=== PATIENT | female | born 1985 | race Caucasian/White ===

== ENCOUNTER 2019-03-15 18:29 | Emergency (ER) | payer OTHER ==
[2019-03-15 18:38] VITALS: BP 131/86
[2019-03-15] MEDS ORDERED: TETANUS/DIPHTHERIA/PERTUSSIS 0.5 ML SYRINGE IM ONE (18:55)
[2019-03-15] MEDS ORDERED: BUFFERED LIDOCAINE 10 ML SYRINGE SUBQ STA (18:55)
[2019-03-15] MEDS ORDERED: BUFFERED LIDOCAINE 10 ML SYRINGE ONE (18:56)
--- NOTE | 2019-03-15 18:56 | ED Physician Documentation ---
PD HPI LOWER EXT INJURY - Stated complaint Stated Complaint: RT FINGER INJURY - Chief complaint Chief Complaint: Ext Problem - History obtained from History obtained from: Patient - History of Present Illness PD HPI LOW EXT INJURY LOCATION: Right (33-year-old woman with unknown tetanus status was working at home today and the stand mixer turned on with her finger in it and now has a cut and the deformity to the right middle finger) Review of Systems Constitutional: reports: Reviewed and negative Throat: reports: Reviewed and negative Cardiac: reports: Reviewed and negative PD PAST MEDICAL HISTORY - Present Medications Home Medications: Ambulatory Orders Medication Instructions Recorded Confirmed Cephalexin [Keflex] 500 mg PO Q6H #28 capsule 03/15/19 Hydrocodone/Acetaminophen 1 - 2 each PO Q6H PRN #10 tablet 03/15/19 [Hydrocodon-Acetaminophen 5-325] - Allergies Allergies/Adverse Reactions: Allergies Allergy/AdvReac Type Severity Reaction Status Date / Time No Known Drug Allergies Allergy Verified 03/15/19 18:35 PD ED PE NORMAL - Vitals Vital signs reviewed: Yes - General General: Alert and oriented X 3, No acute distress - Extremities Extremities: Other (On the ulnar side of the right middle finger there is a sma ll laceration and some deformity about the DIP with normal sensation at the tip. Cannot move it due to pain.) - Neuro Neuro: Alert and oriented X 3, Normal speech Results - Vitals Vitals: Vital Signs - 24 hr 03/15/19 18:35 Temperature 36.5 C Heart Rate 66 Respiratory 16 Rate Blood Pressure 131/86 H O2 Saturation 99 Oxygen O2 Source Room air Procedures - Splint (location) R 3rd finger Splint applied by: Tech Type of splint: Metal foam finger splint Other: Patient tolerated well, No complications, Neurovascular intact - Reduction Body part reduced: Right, Finger Fracture or dislocation: Fracture dislocation Anesthesia: Digital block Reduction aftercare: Alignment improved, Splint applied PD MEDICAL DECISION MAKING - ED course ED course: She presents with a somewhat angulated potentially open finger fracture, it was reduced after a digital block and splinted. Counseled on the need to follow-up with orthopedics and given a CD of her x-ray. Departure - Departure Disposition: 01 Home, Self Care Clinical Impression: Open fracture of phalanx of digit of hand Qualifiers: Encounter type: initial encounter Qualified Code(s): S62.609B - Fracture of unspecified phalanx of unspecified finger, initial encounter for open fracture Condition: Good Record reviewed to determine appropriate education?: Yes Instructions: ED Fx Finger Open Prescriptions: Cephalexin [Keflex] 500 mg PO Q6H #28 capsule Hydrocodone/Acetaminophen [Hydrocodon-Acetaminophen 5-325] 1 - 2 each PO Q6H PRN #10 tablet PRN Reason: pain Comments: [place] Take the CD of the x-ray with you. Keep it splinted. Return for new or worsening symptoms. Discharge Date/Time: 03/15/19 19:42
[2019-03-15] MEDS ORDERED: cephALEXin 250 MG CAPSULE PO STA (19:13)
--- NOTE | 2019-03-15 19:18 | XRAY Report ---
Reason: finger inj Procedure Date: 03/15/2019 Accession Number: [id number] / [id number] Procedure: XR - Finger(s) RT CPT Code: Final Report FULL RESULT: EXAM: RIGHT THIRD DIGIT RADIOGRAPHY EXAM DATE: 03/15/2019 07:13 PM. CLINICAL HISTORY: Finger inj. COMPARISON: None. TECHNIQUE: 3 views. FINDINGS: Bones: Oblique mildly displaced third middle phalangeal fracture is evident. No other fracture lines are seen. Joints: No subluxations. Soft Tissues: Soft tissue swelling in the third digit. IMPRESSION: 1. Oblique mildly displaced third middle phalangeal fracture is seen with surrounding soft tissue swelling. RADIA
== END 2019-03-15 19:42 | disposition home or self-care (01) ==
LOC: ED 18:29
DX: S62.622A Displaced fracture of middle phalanx of right middle finger, initial encounter for closed fracture (principal); S61.212A Laceration without foreign body of right middle finger without damage to nail, initial encounter; W29.0XXA Contact with powered kitchen appliance, initial encounter; Y93.89 Activity, other specified; Y92.009 Unspecified place in unspecified non-institutional (private) residence as the place of occurrence of the external cause
CPT/HCPCS: 73140; 90471; 90715; 99283; A9270

== ENCOUNTER 2019-03-19 07:27 | Day surgery (SDC) | payer OTHER ==
[2019-03-19] MEDS ORDERED: fentaNYL 100 MCG/2 ML VIAL IVP ONE (07:28)
[2019-03-19] MEDS ORDERED: DEXAMETHASONE 4 MG/ML VIAL IVP ONE (07:28)
[2019-03-19] MEDS ORDERED: PROPOFOL 200 MG/20 ML VIAL IVP ONE (07:28)
[2019-03-19] MEDS ORDERED: GLYCOPYRROLATE 1 MG/5 ML VIAL IVP ONE (07:28)
[2019-03-19 07:46] LABS: HCG UR QUAL NEGATIVE
[2019-03-19] MEDS ORDERED: CEFAZOLIN SODIUM IN 0.9 % NACL 2 GM/100 ML BAG IV ONE (07:48)
[2019-03-19] MEDS ORDERED: LACTATED RINGERS 1,000 ML IV ONE (08:00)
[2019-03-19] MEDS ORDERED: BUPIVACAINE 0.25% PF 30 ML VIAL ONE (08:03)
--- NOTE | 2019-03-19 08:03 | ANESTHESIA ---
Pre-Anesthesia VS, & Labs - Diagnosis R 3rd finger fx - Procedure R 3rd finger closed vs open reduction Vital Signs: Temp Pulse Resp BP Pulse Ox 36.8 C 68 18 140/88 H 99 03/19/19 07:37 03/19/19 07:37 03/19/19 07:37 03/19/19 07:37 03/19/19 07:37 Height 5 ft 5.75 in Weight (kg) 77 kg Body Mass Index 28.3 - NPO >8 hours - Is Patient ?: No - Lab Results Lab results reviewed: Yes Home Medications and Allergies Allergies/Adverse Reactions: Allergies Allergy/AdvReac Type Severity Reaction Status Date / Time No Known Drug Allergies Allergy Verified 03/15/19 18:35 Anes History & Medical History - Anesthetic History Anesthesia Complications: reports: No previous complications Family history of Anesthesia Complications: Denies Family history of Malignant Hyperthermia: Denies - Medical History Cardiovascular: reports: None Pulmonary: reports: None Gastrointestinal: reports: None Urinary: reports: None Musculoskeletal: reports: Other (R 3rd finger fx) Endocrine/Autoimmune: reports: None Skin: reports: None Psychosocial: reports: Alcohol (social) - Surgical History General: Colonoscopy, EGD Orthopedic: Arthroscopic surgery Exam General: Alert, Oriented x3, Cooperative Dental: WNL, Other (chips to 6, 9) Mouth Openin Fingerbreadth Neck Mobility: Normal Mallampati classification: II Respiratory: Lungs clear, Normal breath sounds Cardiovascular: Regular rate Neurological: Normal speech Mental/Cognitive Status: Alert/Oriented X3, Normal for patient Cognitive Status: Within normal limits Plan Anesthesia Type: General Consent for Procedure(s) Verified and Reviewed: Yes Code Status: Attempt Resuscitation ASA classification: 1-Healthy patient Is this case an emergency?: No
[2019-03-19] MEDS ORDERED: BUPIVACAINE 0.25% PF 30 ML VIAL SUBQ ONE ×2 (08:56→09:31)
[2019-03-19] MEDS ORDERED: ONDANSETRON 4 MG/2 ML VIAL IVP PRN (09:53)
[2019-03-19] MEDS ORDERED: oxyCODONE 5 MG TABLET PO PRN (09:53)
--- NOTE | 2019-03-19 10:04 | OPERATIVE REPORT ---
Operative Report - General Procedure Date: 03/19/19 - Procedure Note Estimated Blood Loss (mL): 2 - Other Other Information/Narrative: Date of Procedure: 19 March 2019 Planned Procedure: Right long finger middle phalanx closed versus open reduction percutaneous pinning versus internal fixation Pre-op diagnosis: Right long finger middle phalanx oblique fracture Procedure performed: Right long finger middle phalanx closed reduction and percutaneous pinning Post-op diagnosis: Right long finger middle phalanx oblique fracture Primary Surgeon: AKIN ALSTON Secondary Surgeon: Anesthesia: General LMA EBL: 2 ml Tourniquet: 0 minutes Implants: Three 0.035 Audi wires, planned removal in clinic in approximately 3 weeks Specimen(s) Information: None Complication(s): None Condition: Stable to recovery Indications for Surgery: The patient is a 33-year-old right hand dominant female with a right long finger middle phalanx fracture sustained on Monday evening March 15 when 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 She caught her finger in the mixer with deformity of the middle phalanz and distal phalanx skin laceration, and presented to the [facility] ED for evaluation. They verified her tetanus, performed an irrigation and debridement of the distal ulnar-sided skin flap of the distal phalanx, performed a closed reduction and placed her in alumiform splint. She was started on Keflex. She presented to orthopedics on March 18, radiographs and clinical exam demonstrated a long oblique fracture of the middle phalanx, with rotational deformity of the nail bed demonstrated. We discussed treatment options to include continued nonoperative management versus the recommended treatment option of operative management with closed versus open reduction and percutaneous pinning versus internal fixation. Risks of surgery were discussed to include bleeding, infection, postoperative stiffness, implant complications, pin tract infections, loss of reduction, need for further procedures procedures, damage to nerves, vessels, tendons, ligaments, bone and cartilage and anesthesia complications to include medication side effects and allergic reactions and even . After discussion, she wished to proceed. Findings: Right long finger middle phalanx oblique fracture, closed reduced. Descriptions of Procedure: The patient was met in the Preoperative Holding Area, at which time preoperative paperwork was confirmed. The right dorsal hand was signed with an arrow pointing towards the splinted long finger. The patient was then brought to Main Operating Room, placed supine on the Operating Room table, at which time pre procedure timeout was conducted to confirm correct patient, correct extremity and correct procedure and also to confirm presence and sterility of all required equipment and to confirm that antibiotics were being administered in the form of 2g of intravenous Ancef. After this was confirmed, general anesthesia was induced. The operative extremity was then prepped and draped over a hand table in the normal sterile fashion after a well-padded tourniquet was placed on the proximal arm. A final timeout was conducted to confirm the correct patient, correct extremity and correct procedure and to confirm that antibiotics had been administered within 30 minutes of incision time. Following timeout, there was a small lacaratioon on the radial side of the finger. This was explored with hemostats and gently teased apart using tenotomy scissors - it did not track below the dermis. The distal long finger was grasped and the fracture was reduced using longitudinal traction and counter rotation to correct the rotational deformity. During manipulation the distal ulnar skin flap avulsed. the reduction maneuver was applied, there was a nice click as it reduced, and mini C-arm fluoroscopy was used to confirm alignment. I confirmed the lateral image that the epicondyles of both the PIP and DIP joint were rotationally the same. I then applied a [id number] clamp across the fracture to provisionally reduce it, and then using mini C arm fluoroscopy sequentially placed three 0.035 K wires across the fracture site. The clamp was removed. Biplanar fluoroscopy was again used to confirm adequacy of reduction and rotational alignment, followed by visual examination of the nailbeds as well as cascade effect with tenodesis. No rotational deformity was observed. The skin was cleaned with sterile saline. The K wires were then bent and cut, and Chevy balls were placed. The K wires were then wrapped with Xeroform, a separate Xeroform pad was placed over the area of avulsed soft tissue on the distal ulnar side of the distal phalanx. The pins were padded using 4 x 4's, and a plaster splint including the long ring and small fingers was applied, with mild wrist extension in intrinsic plus. This was overwrapped with a gently compressive Reji bandage. The patient was then awakened from general anesthesia without complication, brou ivant to the Post Anesthesia Care for further recovery. Postoperative Plan: 1. The patient will be discharged from the Same Day Surgery Unit when discharge criteria are met. 2. The patient will remain in a splint for approximately until follow-up. 3. Plan for pin removal in clinic in approximately 3 weeks, and initiation of motion and therapy
[2019-03-19] MEDS ORDERED: oxyCODONE 5 MG TABLET ONE (10:30)
[2019-03-19 10:51] VITALS: BP 124/81
== END 2019-03-19 07:28 | disposition home or self-care (01) ==
LOC: SDS 07:27
PROVIDERS: ATTEND Orthopaedic Surgery
PROC: 0PST34Z Reposition Right Finger Phalanx with Internal Fixation Device, Percutaneous Approach (ICD-10-PCS; principal; 2019-03-19 08:30)
DX: S62.622A Displaced fracture of middle phalanx of right middle finger, initial encounter for closed fracture (principal); X50.1XXA Overexertion from prolonged static or awkward postures, initial encounter; W29.0XXA Contact with powered kitchen appliance, initial encounter; Y93.G3 Activity, cooking and baking
CPT/HCPCS: 81025

== ENCOUNTER 2022-03-25 14:27 | Emergency (ER) | payer OTHER ==
[2022-03-25 14:35] VITALS: BP 142/97
--- NOTE | 2022-03-25 15:00 | ED Physician Documentation ---
History of Present Illness - Stated complaint Stated Complaint: RT RIB PAIN - Chief complaint Chief Complaint: General - History obtained from History obtained from: Patient - Additonal information Additional information: 36-year-old woman has been dealing with right-sided pain for the last week. She originally felt it kind of in the mid to low right rib cage in the back. It was not worse with deep breathing, exertion, or movement of the shoulder or thorax. Now she notices it more in the right upper quadrant and she has noticed more recently that she is developed some nausea and it worsens about 20 to 30 minutes after eating. She has not vomited. No history of abdominal surgeries or major health issues. Review of Systems Ten Systems: 10 systems reviewed and negative Constitutional: denies: Fever, Chills Eyes: reports: Reviewed and negative Ears: reports: Reviewed and negative PD PAST MEDICAL HISTORY - Past Medical History Cardiovascular: None Respiratory: None Endocrine/Autoimmune: None GI: None : None HEENT: None Psych: None Musculoskeletal: Other (R 3rd finger fx) Derm: None - Past Surgical History General: Colonoscopy, EGD Ortho: Arthroscopic surgery - Present Medications Home Medications: Ambulatory Orders Medication Instructions Recorded Confirmed Hydrocodone/Acetaminophen 1 - 2 each PO Q6H PRN #10 tablet 03/15/19 [Hydrocodon-Acetaminophen 5-325] cephALEXin [Keflex] 500 mg PO Q6H #28 capsule 03/15/19 Omeprazole 40 mg PO DAILY #30 cap 03/25/22 - Allergies Allergies/Adverse Reactions: Allergies Allergy/AdvReac Type Severity Reaction Status Date / Time No Known Drug Allergies Allergy Verified 03/25/22 14:35 PD ED PE NORMAL - Vitals Vital signs reviewed: Yes - General General: Alert and oriented X 3, No acute distress - Cardiac Cardiac: RRR, No murmur - Respiratory Respiratory: No respiratory distress, Clear bilaterally - Abdomen Abdomen: Normal bowel sounds, Soft, Other (I am unable to elicit any tenderness of the thorax, abdomen. She does not wince with deep breathing.) - Back Back: No CVA TTP, No spinal TTP - Derm Derm: Normal color, Warm and dry - Extremities Extremities: No edema, No calf tenderness / cord - Neuro Neuro: Alert and oriented X 3, Normal speech Results - Vitals Vitals: Vital Signs - 24 hr 03/25/22 14:31 Temperature 36.9 C Heart Rate 84 Respiratory 16 Rate Blood Pressure 142/97 H O2 Saturation 100 Oxygen O2 Source Room air - Labs Labs: Laboratory Tests 03/25/22 03/25/22 03/25/22 15:04 15:04 15:15 WBC 5.9 RBC 4.28 Hgb 13.0 Hct 39.0 MCV 91.1 MCH 30.4 MCHC 33.3 RDW 13.3 Plt Count 241 MPV 9.2 Neut # (Auto) 3.1 Lymph # (Auto) 2.2 [place] # (Auto) 0.5 Eos # (Auto) 0.1 Baso # (Auto) 0.0 Absolute Nucleated RBC 0.00 Nucleated RBC % 0.0 Sodium 137 Potassium 3.6 Chloride 101 Carbon Dioxide 27 Anion Gap 9.0 BUN 16 Creatinine 0.9 Estimated GFR (MDRD) 71 L Glucose 98 Calcium 9.5 Total Bilirubin 1.1 H AST 25 ALT 18 Alkaline Phosphatase 46 Total Protein 7.6 Albumin 4.7 Globulin 2.9 Albumin/Globulin Ratio 1.6 Lipase 42 Urine Color YELLOW Urine Clarity CLEAR Urine pH 7.0 Ur Specific [place] <=1.005 Urine Protein NEGATIVE Urine Glucose (UA) NEGATIVE Urine Ketones NEGATIVE Urine Occult Blood NEGATIVE Urine Nitrite NEGATIVE Urine Bilirubin NEGATIVE Urine Urobilinogen 0.2 (NORMAL) Ur Leukocyte Esterase SMALL H Urine RBC 0-5 Urine WBC 4-5 Ur Squamous Epith Cells FEW Squamous Urine Bacteria Few Ur Microscopic Review INDICATED Urine Culture Comments INDICATED Urine HCG, Qual NEGATIVE - Rads (name of study) CT of the chest abdomen pelvis and ultrasound show hemangioma, nothing else Radiology: Final report received, EMP read indepedently PD Medical Decision Making - ED course ED course: 36-year-old woman with right-sided chest abdominal pain, seems related to eating and does not seem musculoskeletal. Initially sent for ultrasound given that it seemed like biliary, but this was negative. This was followed by a expanded differential to rule out PE and abdominal etiologies with CTs and this was negative. Further discussion with patient, she stopped Prilosec about a month ago and by process of elimination, this should be could be certainly consistent with gastritis or ulcer and will restart PPI. Departure - Departure Disposition: 01 Home, Self Care Clinical Impression: Abdominal pain, Chest wall pain Condition: Good Record reviewed to determine appropriate education?: Yes Instructions: ED Abdominal Pain Female Non-Specific Abdominal Pain Prescriptions: Omeprazole 40 mg PO DAILY #30 cap Comments: As discussed, your labs, CAT scan and ultrasound were negative with the exception of a hemangioma on the liver which is a benign etiology. If you have persistent symptoms, talk with your doctor about a HIDA scan. In the meantime we are starting Prilosec to see if that helps. Especially since you stopped that about a month ago it certainly could be related. Return for new or worsening symptoms.
[2022-03-25 15:11] LABS: BASOPHILS % (AUTO) 0.5 %; EOSINOPHILS # (AUTO) 0.1 10^3/uL (0.0-0.7); LYMPHOCYTES # (AUTO) 2.2 10^3/uL (1.5-3.5); LYMPHOCYTES % (AUTO) 36.9 %; MEAN CORPUSCULAR HEMOGLOBIN 30.4 pg (27.0-31.0); MEAN CORPUSCULAR HGB CONC 33.3 g/dL (32.0-36.0); MEAN CORPUSCULAR VOLUME 91.1 fL (81.0-99.0); MEAN PLATELET VOLUME 9.2 fL (7.9-10.8); MONOCYTES # (AUTO) 0.5 10^3/uL (0.0-1.0); MONOCYTES % (AUTO) 8.5 %; NEUTROPHILS # (AUTO) 3.1 10^3/uL (1.5-6.6); NEUTROPHILS % (AUTO) 52.9 %; PLT - PLATELET COUNT 241 10^3/uL (130-450); RED BLOOD COUNT 4.28 10^6/uL (4.20-5.40); RED CELL DISTRIBUTION WIDTH 13.3 % (12.0-15.0); WHITE BLOOD COUNT 5.9 x10^3/uL (4.8-10.8)
[2022-03-25 15:24] LABS: ALBUMIN 4.7 g/dL (3.2-5.5); ALBUMIN/GLOBULIN RATIO 1.6 (1.0-2.2); BILIRUBIN,TOTAL 1.1 mg/dL (0.2-1.0); CALCIUM 9.5 mg/dL (8.5-10.3); CREATININE 0.9 mg/dL (0.4-1.0); POTASSIUM 3.6 mmol/L (3.5-5.0); TOTAL PROTEIN 7.6 g/dL (6.7-8.2)
[2022-03-25 15:24] LABS: BILIRUBIN,URINE NEGATIVE (NEGATIVE); GLUCOSE, URINE (UA) NEGATIVE (NEGATIVE); KETONES,URINE (UA) NEGATIVE (NEGATIVE); LEUKOCYTE ESTERASE, URINE SMALL (NEGATIVE); NITRITE,URINE NEGATIVE (NEGATIVE); OCCULT BLOOD,URINE NEGATIVE (NEGATIVE); PROTEIN,URINE NEGATIVE (NEGATIVE); UROBILINOGEN,URINE 0.2 (NORMAL) E.U./dL (NORMAL)
[2022-03-25 15:28] LABS: CLARITY,URINE CLEAR (CLEAR); HCG UR QUAL NEGATIVE
[2022-03-25 15:38] LABS: BACTERIA,URINE Few /HPF (None Seen); RBC,URINE 0-5 /HPF (0-5); SQUAMOUS EPITHELIAL CELL,UR FEW Squamous (<= Few)
[2022-03-25] MEDS ORDERED: ONDANSETRON 4 MG/2 ML VIAL IVP STA (15:40)
--- NOTE | 2022-03-25 16:00 | Ultrasound Report ---
PROCEDURE: Abdomen Limited INDICATIONS: RUQ pain TECHNIQUE: Real-time focused scanning was performed of the abdomen, with image documentation. COMPARISON: None FINDINGS: Liver: The liver has a normal size and echotexture. A 1.5 x 1.7 x 2.0 cm hyperechoic focus is consist ent with a benign hemangioma. No other solid or cystic mass. No intrahepatic biliary ductal dilatatio n. The common bile duct measures 3.9 mm. Gallbladder: No stones or sludge. No wall thickening. Pancreas: Normal. Kidneys: The right kidney measures 10.8 cm in length. No solid or cystic masses. IVC: The IVC is patent. IMPRESSION: 1. No acute ultrasound abnormality of the abdomen. 2. Benign hemangioma in the right lobe. Reviewed by: Louie Tamez on 03/25/2022 3:59 PM PST Approved by: Louie Tamez on 03/25/2022 3:59 PM PST Station ID: [id number]
[2022-03-25] MEDS ORDERED: iohexoL-300 100 ML VIAL ONE (16:28)
--- NOTE | 2022-03-25 18:26 | CT Report ---
PROCEDURE: ABDOMEN/PELVIS W INDICATIONS: IV only, RUQ pain CONTRAST: 80ml omni 300 TECHNIQUE: After the administration of IV contrast, 5 mm thick sections acquired from the diaphragms to the symp hysis. 5 mm thick coronal and sagittal reformats were acquired. For radiation dose reduction, the f ollowing was used: automated exposure control, adjustment of mA and/or kV according to patient size. COMPARISON: Correlation made to ultrasound of the abdomen performed the same day. FINDINGS: Image quality: Excellent. ABDOMEN: Lung bases: Lung bases are clear. Heart size is normal. Solid organs: 2.1 cm irregular hypodensity in segment 7 of the liver, likely a hemangioma. The gallb ladder is normal. Biliary tree is nondilated. The spleen is normal size. The pancreas is normal conto ur. No adrenal masses. The right renal upper pole demonstrates a small focus of cortical volume loss, potentially scarring with an underlying nonobstructing, possibly parenchymal calcification. Normal e nhancement of each kidney. No hydronephrosis. No hydroureter. Peritoneum and bowel: Normal appendix present. Mildly increased quantity of solid stool throughout t he loops of colon. Bowel loops demonstrate normal wall thickness and caliber. No free fluid or air. Nodes and vessels: No retroperitoneal or mesenteric adenopathy by size criteria. Aorta and inferior vena cava are normal in size. Miscellaneous: No ventral hernias. PELVIS: Genitourinary: Bladder wall thickness is normal. There is an IUD in the anteverted uterus. Ovarian t issue has a normal CT appearance. Miscellaneous: No inguinal hernias or adenopathy. Bones: No suspicious bony lesions. Degenerative disc height loss L5-S1. No vertebral body compressi on fractures. IMPRESSION: 1. No acute process. 2. Probable hepatic hemangioma in segment 7 incidentally noted, also seen on ultrasound. 3. Evidence of possible remote right renal infection and scarring. Reviewed by: Pennie Garcia MD on 03/25/2022 6:24 PM PST Approved by: Pennie Garcia MD on 03/25/2022 6:24 PM PST Station ID: [id number]
--- NOTE | 2022-03-25 18:31 | CT Report ---
PROCEDURE: ANGIO CHEST W/WO INDICATIONS: PE protocol, R Chest/gaspar pain CONTRAST: 80ml omni 300 TECHNIQUE: After the administration of intravenous contrast, 2 mm axial images were acquired from the pulmonary apices to the posterior costophrenic angles during the arterial phase. In addition, 1 mm lung kernel and 5 mm soft tissue kernel reconstructions were performed. 3-dimensional coronal oblique maximum int ensity projection (MIP) reformats, 8 mm axial MIP, and 5 mm coronal and sagittal MPR reformats were t hen performed through the thorax. For radiation dose reduction, the following was used: automated exp osure control, adjustment of mA and/or kV according to patient size. COMPARISON: None FINDINGS: Image quality: Excellent. Pulmonary arteries: Pulmonary arteries are normal in size, and demonstrate no convincing intralumina l filling defects to suggest central pulmonary embolism. There are artifacts from the left lower lob e pulmonary arteries, most likely volume averaging from motion. Lungs and pleura: Lungs are clear. No pleural effusions or pneumothorax. Central and peripheral ai rways are patent. Mediastinum: Heart size is normal, without pericardial effusion. No mediastinal or hilar adenopathy . Thoracic aorta is normal in caliber and enhancement. Esophagus is normal in caliber, without hiat al hernia. Bones and chest wall: No suspicious bony lesions. Ribs and thoracic spine appear intact throughout. No axillary or supraclavicular adenopathy. The thyroid is normal in size and there are no incident al findings. Abdomen: Dictated separately. IMPRESSION: 1. No pulmonary embolus. 2. No pulmonary parenchymal pathology. Reviewed by: Pennie Garcia MD on 03/25/2022 6:30 PM PST Approved by: Pennie Garcia MD on 03/25/2022 6:30 PM PST Station ID: [id number]
[2022-03-25] MEDS ORDERED: iohexoL-300 100 ML VIAL IVP ONE (18:47)
== END 2022-03-25 18:52 | disposition home or self-care (01) ==
LOC: ED 14:27
DX: R10.9 Unspecified abdominal pain (principal); R07.89 Other chest pain
CPT/HCPCS: 36415; 71275; 74177; 76705; 80053; 81001; 81025; 83690; 85025; 87086; 96374; 99282; 99284; Q9967; 81003